=== PATIENT | male | born 1985 | race Caucasian/White ===

== ENCOUNTER 2019-11-08 12:20 | Emergency (ER) | payer MEDICAID ==
[~2019-11-08] VITALS: Ht 182.9 cm; Wt 113.4 kg
--- NOTE | 2019-11-08 23:44 | EKG ---
[facility] [address] [facility] [place] [address] Signed Normal sinus rhythm Normal ECG No previous ECGs available Confirmed by CONNER QUIROS MD ([id number]) on 11/08/2019 11:43:50 PM Electronically Signed By: CONNER QUIROS MD 11/08/19 2344 PATIENT NAME: TANA LEON Electrocardiogram DATE OF : [birth year] PHYSICIAN: CONNER QUIROS MD REPORT #: [id number] REPORT IS CONFIDENTIAL AND NOT TO BE RELEASED WITHOUT AUTHORIZATION
== END 2019-11-08 14:22 | disposition home or self-care (01) ==
LOC: ED 12:20
DX: R07.89 Other chest pain (principal); R03.0 Elevated blood-pressure reading, without diagnosis of hypertension
CPT/HCPCS: 80053; 84484; 85025; 93005; 93010; 99285-25

== ENCOUNTER 2020-03-25 09:00 | Day surgery (SDC) | payer OTHER ==
[~2020-03-25] VITALS: Ht 182.9 cm; Wt 113.4 kg
[~2020-03-25 09:00] MED LIST: COZAAR100 MG PO; CYMBALTA60 MG PO
--- NOTE | 2020-03-25 11:53 | NUR ---
03/25/20 1153 Sheets,Autumn 1123 PT ARRIVED TO PACU WITH LARGE AMOUNT OF SNORING AND UPPER AIRWAY OBSTRUCTION NOTED WITH NOISY AIRWAY. RN DOING JAW THRUST, PT JAW HARD TO MOVE AND NOISY AIRWAY CONTINUES, O2 SAT DECREASES TO UPPER 80S. 1125 PT ROLLING AROUND IN BED SECOND RN DOING JAW THRUST AND PT STARTS GRABBING AT FACE AND MOVING ARMS TRY IN TO GET OUT OF BED. FOURS RNS AT BEDSIDE TRYING TO REORIENT PT TO PACU. FILTER CLOTH MAKER GETTING BREATHING TREATMENT. ORAL AND NASAL AIRWAY REMOVED, SMALL AMOUNT OF BLOOD DRAINAGE IN MOUTH, SUCTION USED. 1129 BREATHING TREATMENT STARTED AND PT STARTS TO FOLLOW COMMANDS. UNABLE TO RECORD BP WHILE PT MOVING IN BED. O2 SAT INCREASED TO 100% WHILE ON BREATHING TREATMENT AT 10L. 1130 PT RESTING ON RIGHT SIDE AND HOB IN HIGH FOWLERS AND RESTING IN BED AND WAKES TO TACTILE STIMULI AND DENIES PAIN. VSS. 1138 PT WAKES AND REACHES FOR MASK OFF AND ON, ABLE TO BE REORIENTED TO PACU AND MASK REMAINS IN PLACE. BREATHING TREATMENT FINISHED AND MASK REMOVED. 1142 O2 SAT DECREASED TO 88%, RN ENCOURAGES DEEP BREATHING AND 3L NC PLACED. O2 SAT INCREASED TO MID 90S.
[2020-03-25] MEDS ORDERED: HYDROCODONE-ACE15 M3 PO (12:39)
--- NOTE | 2020-03-25 12:45 | NUR ---
PATIENT SLEEPING. GIRLFRIEND AT BEDSIDE, BUT HEADING HOME. CALL LIGHT WITHIN REACH.
--- NOTE | 2020-03-25 13:34 | NUR ---
1300: PATIENT PUT SENIOR WRITER LIGHT. C/O FEELING "A LOT OF PHLEGM IN MY THROAT." PATIENT ABLE TO COUGH UP SMALL AMOUNT OF BLOODY PHLEGM. PATIENT SPITTING BLOOD EVERY COUPLE OF MINUTES. PATIENT STATES HE FEELS LIKE MAYBE IT IS SLOWLY BLEEDING FROM THE SURGERY SITE. DENIES PAIN. O2 SAT 99% ON 2 L/MIN OF O2. O2 REMOVED. 1315: PHONE CALL TO DR. FITZGERALD. NOTIFIED DR. FITZGERALD OF PATIENT'S BLEEDING. DR. FITZGERALD SAID TO HAVE PATIENT GARGLE WITH ICE WATER AND MONITOR BLEEDING AND TO CALL BACK IF IT DOESN'T IMPROVE. 1330: PATIENG GARGLED WITH ICE WATER. BLEEDING NOT IMPROVING. DR. FITZGERALD NOTIFIED. DR. FITZGERALD TO COME SEE PATIENT.
--- NOTE | 2020-03-25 13:49 | NUR ---
1342: DR. FITZGERALD IN ROOM EXAMING PATIENT.
--- NOTE | 2020-03-25 14:21 | NUR ---
1405: PATIENT TAKEN BACK TO OR.
--- NOTE | 2020-03-25 15:18 | NUR ---
03/25/20 1518 Pita Salvador 1506 PATIENT ARRIVES TO PACU SLEEPING, OCCASIONAL SNORING. HOB ELEVATED 45 DEGREES. RESP EVEN AND UNLABORED. MASK AT 6 LITERS. DRY BLOOD TO FACE AND ALICEA FROM OR. DR ROLLE. 1512 PATIENT SLEEPING, OPENS EYES WITH VERBAL STIMULI. RESP EVEN AND UNLABORED, SNORING AT TIMES, MASK CONTINUED AT 6 LITERS. FOLLOWS COMMANDS WHEN AWAKE, SLEEPING WHEN NOT STIMULATED.
--- NOTE | 2020-03-25 15:52 | NUR ---
1545: PATIENT BACK IN DAY SURGERY ROOM FROM PACU. PATIENT SLEEPING, BUT AWAKENS TO VOICE. DENIES PAIN. DENIES NAUSEA. VS CHECKED. NO DRAINAGE SEEN FROM MOUTH. SCDs ON. GIRLFRIEND AT BEDSIDE. CALL LIGHT WITHIN REACH.
--- NOTE | 2020-03-25 16:30 | NUR ---
PATIENT SLEEPING. AWAKENS EASILY TO VOICE. VS CHECKED. RATES PAIN 2/10. DENIES NAUSEA. DENIES FEELING BLEEDING IN HIS MOUTH OR THROAT. NO DRAINAGE SEEN COMING FROM MOUTH. CALL LIGHT WITHIN REACH.
--- NOTE | 2020-03-25 17:00 | NUR ---
CHECKED ON PT, HE IS AWAKE, REPORTING HE IS HOT. HE IS AGREEABLE TO TRYING SOME JELLO AND IS TOLERATING WATER. HE WOULD LIKE TO GET UP TO USE THE RESTROOM, HE IS ASSISTED UP OOB, BUT AMBULATES INDEPENDENTLY.
--- NOTE | 2020-03-25 17:34 | NUR ---
PT IS GIVEN VERBAL DC INSTRUCTIONS WITH SIGNIFICANT OTHER PRESENT, THEY BOTH VERBALIZE UNDERSTANDING. QUESTIONS ARE ASKED AND ANSWERED. PT IS TAKEN TO VEHICLE VIA WC, HE IS ABLE TO TRANSFER HIMSELF FROM WC TO CAR.
--- NOTE | 2020-03-27 13:56 | PATH ---
[facility] [address] [place], [place] [address] Signed SPECIMEN(S): A LEFT TONSIL SPECIMEN(S): B RIGHT TONSIL SPECIMEN SOURCE: A. LEFT TONSIL B. RIGHT TONSIL CLINICAL HISTORY: Tonsillitis. FINAL PATHOLOGIC DIAGNOSIS: A. Left tonsil: - [place] tonsil with reactive features and mild acute epithelial inflammation (tonsillitis). - Negative for significant epithelial atypia. B. Right tonsil: - [place] tonsil with reactive features and mild acute epithelial inflammation (tonsillitis). - Negative for significant epithelial atypia. JVR:wayne:C2NR MICROSCOPIC EXAMINATION: Histologic sections of all submitted blocks are examined by light microscopy. These findings, together with the gross examination, support the pathologic diagnosis. GROSS DESCRIPTION: Two specimens are received in two containers, labeled "JA." A. The specimen, labeled "JA, A" and designated on the requisition "left tonsil," is received in formalin and consists of an irregular shaped martinez-violaceous palatine tonsil measuring 3.3 x 1.9 x 1.8 cm. The cut surface is martienz and smooth with a focally hemorrhagic area. The surgical margin is inked black and a credit representative section is submitted in cassette A1. B. The specimen, labeled "JA, B," and designated on the requisition "right tonsil," is received in formalin and consists of a martinez palatine tonsil measuring 3.9 x 1.7 x 1.8 cm. The cut surface is martinez and smooth with a superficial focal hemorrhagic area as well as irregular red specks. Two credit representative sections are submitted in cassette (A1). AT (under the direct supervision of a pathologist) PATIENT NAME: TANA LEON PATHOLOGY DATE OF : [birth year] REPORT #: [id number] PHYSICIAN: AUGUSTO PATHOLOGY PCP: CONNER QUIROS MD REPORT IS CONFIDENTIAL AND NOT TO BE RELEASED WITHOUT AUTHORIZATION [facility] [address] [place], [place] [address] Signed The Gross Description was prepared using a voice recognition system. The report was reviewed for accuracy; however, sound-alike word errors, addition and/or deletions may occur. If there is any question about this report, please contact Client Services. PERFORMING LABORATORY: The technical component was performed [place] [address] (Wine Manager: Katya Ferrari MD; CLIA# [id number]). Professional interpretation was [place] [address] (Wine Manager: Alonso Vickers M.D.). Diagnostician: Alosno Vickers MD Pathologist Electronically Signed 03/27/2020 Copies: ~ PATIENT NAME: TANA LEON PATHOLOGY DATE OF : [birth year] REPORT #: [id number] PHYSICIAN: AUGUSTO SIMON PCP: CONNER QUIROS MD REPORT IS CONFIDENTIAL AND NOT TO BE RELEASED WITHOUT AUTHORIZATION
--- NOTE | 2020-04-01 14:25 | OR ---
[facility] [address] [place], [place] [address] Signed DATE OF OPERATION: 03/25/2020 SURGEON: Raf Fitzgerald MD PREOPERATIVE DIAGNOSIS: Post tonsillectomy hemorrhage. POSTOPERATIVE DIAGNOSIS: Post tonsillectomy hemorrhage. PROCEDURE PERFORMED: Control of postoperative tonsillar hemorrhage. ANESTHESIA: General orotracheal; ADMINISTRATIVE RESIDENT, Rashid. PREOPERATIVE HISTORY: Tana is a 34-year-old man, who underwent tonsillectomy earlier today. His anatomy is very difficult, large tongue, huang neck. Tonsillectomy was uncomplicated, but several hours after surgery, he began bleeding from the right tonsil fossa. Unable to control this in the same-day surgery area and he is taken back to the OR urgently for control of post tonsillectomy hemorrhage. OPERATIVE PROCEDURE AND FINDINGS: After informed consent, the patient was taken to the operating room, placed in a supine position, where general orotracheal anesthesia was induced. The patient had copious oral hemorrhage. McIvor mouth gag was placed into suspension. The pharynx was suctioned clear of blood. Active bleeding from the right inferior pole was controlled with suction cautery. This was very difficult procedure due to very restricted airway and very inferior location of the bleeding. Hemostasis was obtained. No further bleeding after 10-15 minutes observation. An orogastric tube was placed and 300 mL of blood was removed from the stomach. The pharynx was suctioned clear of blood secretions. Hemostasis verified. His mouth gag was removed. The patient was awakened, extubated, transported to recovery room in good condition. No complications. BLOOD LOSS: Around several 100 mL. DRAINS: No drains. Electronically Signed By: RAF FITZGERALD MD 04/01/20 1425 PATIENT NAME: TANA LEON OPERATIVE REPORT DATE OF : 89 REPORT #: [id number] PHYSICIAN: RAF FITZGERALD MD PCP: CONNER QUIROS MD REPORT IS CONFIDENTIAL AND NOT TO BE RELEASED WITHOUT AUTHORIZATION [address] [address] Signed Raf Fitzgerald MD /MANNIE /[id number] Copies: ~ Electronically Signed By: RAF FITZGERALD MD 04/01/20 1425 PATIENT NAME: TANA LEON OPERATIVE REPORT DATE OF : [birth year] REPORT #: [id number] PHYSICIAN: RAF FITZGERALD MD PCP: CONNER QUIROS MD REPORT IS CONFIDENTIAL AND NOT TO BE RELEASED WITHOUT AUTHORIZATION
--- NOTE | 2020-04-01 14:25 | OR ---
[facility] [address] [place], [place] [address] Signed DATE OF OPERATION: 03/25/2020 SURGEON: Raf Smith MD PREOPERATIVE DIAGNOSIS: Chronic tonsillitis. POSTOPERATIVE DIAGNOSIS: Chronic tonsillitis. PROCEDURE: Tonsillectomy. ANESTHESIA: General orotracheal; NANCY, David. PREOPERATIVE HISTORY: Tana is a 34-year-old male with a long history of tonsillitis, chronic sore throats, taken to the operating room for the above-mentioned procedures. OPERATIVE PROCEDURE AND FINDINGS: After informed consent, the patient was taken to the operating room, placed in supine position, where general orotracheal anesthesia was induced. The patient and procedure were verified. The patient was repositioned, McIvor mouth gag placed into suspension. Headlight exam of the pharynx showed cryptic tonsillithic tonsils 2+, slightly hypertrophic, obstructive. The tongue was massive. The right tonsil was grasped with a tenaculum, retracted medially, and removed from its fossa with mucosal sparing incision with Coblation. The field was dry after the procedure. Same procedure on the left tonsil. Tonsils were sent to pathology. Reinspection of the tonsil fossa, showed no bleeding points. The pharynx was suctioned clear of blood and secretions. Mouth gag was removed. The patient was awakened, extubated, and transported to recovery room in good condition. No complications. BLOOD LOSS: Minimal. SPECIMEN: To pathology. DRAINS: Electronically Signed By: RAF SMITH MD 04/01/20 1425 PATIENT NAME: TANA LEON OPERATIVE REPORT DATE OF : [birth year] REPORT #: [id number] PHYSICIAN: RAF SMITH MD PCP: CONNER QUIROS MD REPORT IS CONFIDENTIAL AND NOT TO BE RELEASED WITHOUT AUTHORIZATION [address], [place] [address] Signed No drains. Raf Smith MD GC/MODL /[id number] Copies: ~ Electronically Signed By: RAF SMITH MD 04/01/20 1425 PATIENT NAME: TANA LEON OPERATIVE REPORT DATE OF : [birth year] REPORT #: [id number] PHYSICIAN: RAF SMITH MD PCP: CONNER QUIROS MD REPORT IS CONFIDENTIAL AND NOT TO BE RELEASED WITHOUT AUTHORIZATION
== END 2020-03-25 17:25 | disposition home or self-care (01) ==
LOC: DSVR 09:00 → OPS 09:00
PROVIDERS: Otolaryngology
PROC: 0W33XZZ Control Bleeding in Oral Cavity and Throat, External Approach (ICD-10-PCS; 2020-03-25)
PROC: 0CBPXZZ Excision of Tonsils, External Approach (ICD-10-PCS; principal; 2020-03-25 10:45)
DX: J35.01 Chronic tonsillitis (principal); L76.22 Postprocedural hemorrhage of skin and subcutaneous tissue following other procedure
CPT/HCPCS: 00170; 88304; J0330; J1100; J1885; J2001; J2250; J2405; J2704; J2765; J3010; J7121

== ENCOUNTER 2024-05-08 05:39 | Day surgery (SDC) | payer OTHER ==
[2024-05-03 12:21] VITALS: BP 128/81
[~2024-05-08] VITALS: Ht 182.9 cm; Wt 118.2 kg
[~2024-05-08 05:39] MED LIST changes: +GABAPENTIN100 MG PO; +HYDROCODONE-ACE15 M3 PO; +LACTATED RINGER'S 1,000 ML IV SCH
[2024-05-08 05:55] VITALS: BP 141/78
[2024-05-08] MEDS ORDERED: METOCLOPRAMIDE HCL 10 MG/2 ML SDV ONE (06:35)
[2024-05-08] MEDS ORDERED: FAMOTIDINE 20 MG/ 2 ML VIAL ONE (06:35)
[2024-05-08] MEDS ORDERED: KETOROLAC TROMETHAMINE 30 MG/ML VIAL ONE (06:35)
[2024-05-08] MEDS ORDERED: fentaNYL citrate 100 MCG/2 ML VIAL ONE (06:35)
[2024-05-08] MEDS ORDERED: ondansetron HCL 4 MG/2 ML VIAL ONE (06:35)
[2024-05-08] MEDS ORDERED: DEXAMETHASONE SOD PHOS 4 MG/ML VIAL ONE (06:35)
[2024-05-08] MEDS ORDERED: propofoL 200 MG/20 ML VIAL ONE (06:35)
[2024-05-08] MEDS ORDERED: LACTATED RINGER'S 1,000 ML IV ONE (06:35)
[2024-05-08] MEDS ORDERED: MIDAZOLAM HCL 2 MG/2 ML VIAL ONE (06:35)
[2024-05-08] MEDS ORDERED: CIPROFLOXACIN 0.3% 5 ML HOME.PACK ONE (06:42)
[2024-05-08] MEDS ORDERED: IBLOOD GLUCOSE TEST STRIP 1 EA TEST VI PRN ×2 (07:00→07:30)
[2024-05-08] MEDS ORDERED: LIDOCAINE HCL 1% 5 ML SDV INJ ONE (07:00)
[2024-05-08] MEDS ORDERED: CIPROFLOXACIN 0.3% 5 ML HOME.PACK OTIC ONE (07:00)
[2024-05-08] MEDS ORDERED: PROCHLORPERAZINE EDISYLATE 10 MG/2 ML VIAL IV PRN (07:30)
[2024-05-08] MEDS ORDERED: ondansetron HCL 4 MG/2 ML VIAL IV PRN (07:30)
[2024-05-08] MEDS ORDERED: MORPHINE SULFATE 10 MG/ML VIAL IV PRN (07:30)
[2024-05-08] MEDS ORDERED: fentaNYL citrate 50 MCG/ML SDV IV PRN (07:30)
[2024-05-08] MEDS ORDERED: METOCLOPRAMIDE HCL 10 MG/2 ML SDV IV PRN (07:30)
[2024-05-08] MEDS ORDERED: droPERidol 5 MG/2 ML VIAL IV PRN (07:30)
[2024-05-08] MEDS ORDERED: NALOXONE HCL 0.4 MG SYR IV PRN (07:30)
[2024-05-08] MEDS ORDERED: SUCCINYLCHOLINE IN 0.9% NACL 200 MG/10 ML SYRINGE ONE (07:38)
[2024-05-08] MEDS ORDERED: dexmedeTOMIDine HCl 200 MCG/2 ML VIAL ONE (07:38)
[2024-05-08] MEDS ORDERED: LIDOCAINE HCL 4% 5 ML AMP ONE (07:39)
--- NOTE | 2024-05-08 08:15 | NUR ---
05/08/24 0815 Whitley Pugh 0811-PATIENT ARRIVED TO PACU ON 6L MASK NONAROUSABLE LOGISTICS MANAGER DOING JAW THRUST AND RN TAKES OVER ORAL AIRWAY IN PLACE. . SR HR 60'S. IVF INFUSING. COTTON BALLS INTACT TO BOTH EARS
[2024-05-08] MEDS ORDERED: ACETA/HYDROCODONE 325/7.5 15 ML BTL PO PRN (08:30)
--- NOTE | 2024-05-08 09:45 | NUR ---
PT ARRIVES TO DS UNIT FROM PACU VIA STRETCHER. PT IS DROWSY BUT RESPONSIVE W/HEAD NODDING TO VERBAL QUESTIONS. PT REPORTS NO PAIN AT THIS TIME AND IS TOLERATING SMALL SIPS OF ICE WATER. FAMILY AT BEDSIDE FOR REPORT FROM RACIEL EUBANKS. PT ON 2L OF O2 VIA NC, RESPIRATIONS EVEN AND UNLABORED, NO SIGNS OF DISTRESS. CALL LIGHT WITHIN REACH, PT AND PT FAMILY REPORT NO FURTHER QUESTIONS OR NEED AT THIS TIME.
[2024-05-08 09:46] VITALS: BP 141/77
--- NOTE | 2024-05-08 10:35 | NUR ---
IN PT ROOM D/T PT AWAKE. PT REPORTS NO PAIN AND IS SITTING UP IN BED W/YOUNGEST DAUGHTER IN LAP AND AT BEDSIDE. THIS RN BRINGS JELLO FOR PT TO EAT, PT TOLERATES WITHOUT DIFFICULTY SWALLOWING. PT TOLERATING SIPS OF ICE WATER WITHOUT DIFFICULTY. CALL LIGHT WITHIN REACH, PT REPORTS NO FURTHER NEEDS AT THIS TIME.
[2024-05-08 10:51] VITALS: BP 108/82
--- NOTE | 2024-05-08 11:08 | NUR ---
PT REPORTS NEED TO URINE VOID AT THIS TIME. PT UP TO BEDSIDE AND REPORTS NO SYMPTOMS OF NAUSEA OR DIZZINESS. PT AMBULATES TO RESTROOM W/THIS RN ON STANDBY. PT URINE VOIDS 450 ML OF CLEAR/YELLOW URINE. PT NOW IN ROOM GETTING DRESSED, CALL LIGHT WITHIN REACH, AT BEDSIDE TO ASSIST. PT EDUCATED ABOUT NOT BENDING OVER OR INCREASING HEAD PRESSURE, PT STATES VERBAL UNDERSTANDING.
--- NOTE | 2024-05-08 11:15 | NUR ---
DC EDUCATION PROVIDED BY THIS RN, PT AND PT STATE VERBAL UNDERSTANDING OF DC EDUCATION AT THIS TIME. PT OFF UNIT VIA WC TO PASSENGER SIDE OF DAUGHTER'S VEHICLE. PT REPORTS NO FURTHER NEEDS. ALL BELONGINGS IN PT POSSESSION.
--- NOTE | 2024-05-08 16:57 | OR ---
[facility] [address] [place], [place] [address] Signed DATE OF OPERATION: 05/08/2024 SURGEON: Raf Fitzgerald MD PREOPERATIVE DIAGNOSES: 1. 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 2. Obstructive sleep apnea. POSTOPERATIVE DIAGNOSES: 1. 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 2. Obstructive sleep apnea. PROCEDURES: 1. Bilateral myringotomy and ventilation tube insertion. 2. Palatopharyngoplasty. ANESTHESIA: General, orotracheal; David CRUZ PREOPERATIVE HISTORY: Mr. Ramirez is a 38-year-old man with bilateral middle ear effusions, hearing loss, and flat tympanograms, present for several months despite appropriate medications. He also has snoring and sleep apnea. Diagnosed clinically. He is taken to the operating room for the above-mentioned procedures. OPERATIVE PROCEDURE AND FINDINGS: After informed consent, the patient was taken to the operating room, placed in the supine position, where general orotracheal anesthesia was induced. Patient and procedure were verified. The patient was repositioned. The right ear was examined with the operating microscope. The eardrum was dull, retracted. Anterior-inferior radial myringotomy was made. Serous effusion suctioned from the middle ear space. A Jolly tube placed in myringotomy site. Ofloxacin ophthalmic drops applied to the ear canal, cotton ball to the meatus. Same procedure and same findings, left ear. The patient was repositioned. McIvor mouthgag placed into suspension. Headlight exam of the pharynx showed surgically absent tonsils. Soft palate and uvula were extended hypertrophic. The palatopharyngoplasty was performed with the Coblation. Appropriate length of excision determined by palpation of the soft palate against the posterior pharyngeal wall. Basically, the superior tonsillar fossa mucosa was extended with the Coblation laterally across the midline and transmural resection of the soft palate Electronically Signed By: RAF FITZGERALD MD 05/08/24 1657 PATIENT NAME: TANA RAMIREZ OPERATIVE REPORT DATE OF : [birth year] REPORT #: [id number] PHYSICIAN: RAF FITZGERALD MD PCP: JOSE GROSS MD REPORT IS CONFIDENTIAL AND NOT TO BE RELEASED WITHOUT AUTHORIZATION [facility] [address] [facility] [place], [place] [address] Signed performed in this manner. The bleeding was minimal, stopped afterwards. The pharynx was suctioned clear of blood and secretions. No sutures were placed. Mouth gag was removed. The patient was then awakened, extubated, and transported to the recovery room in good condition. No complications. BLOOD LOSS: Minimal. SPECIMEN: To Pathology. DRAINS: No drains. Raf Fitzgerald MD GC/MODL /[id number] Copies: ~ Electronically Signed By: RAF FITZGERALD MD 05/08/24 1657 PATIENT NAME: TANA RAMIREZ OPERATIVE REPORT DATE OF : [birth year] REPORT #: [id number] PHYSICIAN: RAF FITZGERALD MD PCP: JOSE GROSS MD REPORT IS CONFIDENTIAL AND NOT TO BE RELEASED WITHOUT AUTHORIZATION
--- NOTE | 2024-05-08 21:10 | EKG ---
[facility] [address] [facility] [place] [address] Signed Normal sinus rhythm Normal ECG When compared with ECG of 08-NOV-2019 12:24, Vent. rate has decreased BY [address] elevation now present in Anterior leads Confirmed by Xochilt Brooks MD () on 05/08/2024 9:09:56 PM Electronically Signed By: XOCHILT BROOKS MD 05/08/242109 PATIENT NAME: TANA LEON Electrocardiogram DATE OF : 89 PHYSICIAN: XOCHILT BROOKS MD REPORT #: [id number] REPORT IS CONFIDENTIAL AND NOT TO BE RELEASED WITHOUT AUTHORIZATION
--- NOTE | 2024-05-11 16:29 | PATH ---
[facility] [address] [facility] [place], [place] [address] Signed SPECIMEN(S): A UVULA AND SOFT PALATE SPECIMEN SOURCE: A. UVULA AND SOFT PALATE CLINICAL HISTORY: Prominent soft palate and uvula. FINAL PATHOLOGIC DIAGNOSIS: Uvula and soft palate, excision: - Oral squamous mucosa with no significant pathologic changes BRP MICROSCOPIC EXAMINATION: Histologic sections of all submitted blocks are examined by light microscopy. These findings, together with the gross examination, support the pathologic diagnosis. GROSS DESCRIPTION: The specimen, labeled and designated "Albitre, J, " and designated on the requisition "uvula and soft palate," is received in formalin and consists of 2.1 x 1.7 x 1.1 cm pedunculated portion of mucosa.. The mucosal surface is violaceous smooth. Specimen is inked, sectioned, and entirely submitted in cassette A1. FB (under the direct supervision of a pathologist) The Gross Description was prepared using a voice recognition system. The report was reviewed for accuracy; however, sound-alike word errors, addition and/or deletions may occur. If there is any question about this report, please contact Client Services. ADDITIONAL NOTES: Immunohistochemical and/or in situ hybridization studies if performed in this case included appropriate positive controls that reacted as expected. This test was developed and its performance characteristics determined by [facility]. It has not been cleared or approved by the U.S. Food and Drug Administration. The FDA has determined that such clearance or approval is not necessary. This test is used for clinical purposes. It should not be regarded as investigational or for research. [facility] is certified under the Clinical Laboratory Improvement Amendments of 1988 (CLIA) as qualified to perform high complexity clinical PATIENT NAME: TANA LEON PATHOLOGY DATE OF : [birth year] REPORT #: [id number] PHYSICIAN: AUGUSTO PATHOLOGY PCP: JOSE GROSS MD REPORT IS CONFIDENTIAL AND NOT TO BE RELEASED WITHOUT AUTHORIZATION [facility] [address] [facility] [place] [address] Signed laboratory testing. PERFORMING LABORATORY: Technical component was performed by [facility], [address] [place] [address] (CLIA# [id number]). Professional interpretation was performed by [facility] [address] [place] [phone] [id number] Diagnostician: Joe Cartwright MD Pathologist Electronically Signed 05/11/2024 Copies: ~ PATIENT NAME: TANA LEON PATHOLOGY DATE OF : [birth year] REPORT #: [id number] PHYSICIAN: AUGUSTO PATHOLOGY PCP: JOSE GROSS MD REPORT IS CONFIDENTIAL AND NOT TO BE RELEASED WITHOUT AUTHORIZATION
== END 2024-05-08 11:15 | disposition home or self-care (01) ==
LOC: DS 05:39
PROVIDERS: ATTEND Otolaryngology
PROC: 0CS Mouth and Throat, Reposition (ICD-10-PCS; 2024-05-08)
PROC: 099600Z Drainage of Left Middle Ear with Drainage Device, Open Approach (ICD-10-PCS; principal; 2024-05-08 07:30)
PROC: 099500Z Drainage of Right Middle Ear with Drainage Device, Open Approach (ICD-10-PCS; 2024-05-08 07:30)
DX: G47.33 Obstructive sleep apnea (adult) (pediatric) (principal); H90.0 Conductive hearing loss, bilateral; Z88.8 Allergy status to other drugs, medicaments and biological substances
CPT/HCPCS: 00170; 88305; 93005; 93010; J0330; J1100; J1885; J2250; J2405; J2704; J2765; J3010; J7121